=== PATIENT | female | born 1985 | race Caucasian/White ===

== ENCOUNTER 2017-08-07 11:57 | Emergency (ER) | payer BC, OTHER ==
[~2017-08-07] VITALS: Ht 161.3 cm; Wt 65.7 kg
[2017-08-07 12:00] VITALS: TEMP 36.5; Ht 161.3 cm; Wt 65.7 kg
[2017-08-07] MEDS ORDERED: ONDANSETRON INJ 2 MG/ML 2 ML VIAL IV STA (12:08)
[2017-08-07] MEDS ORDERED: SODIUM CHLORIDE 0.9% 1000ML 1,000 ML IV STA (12:08)
[2017-08-07] MEDS ORDERED: MoRPHine SULFATE 4 MG/ML 1 ML CARP\\VIAL IV STA (12:08)
[2017-08-07 12:40] LABS: BASO % 0.5 %; BASO ABS # 0.04 K/uL (0-0.2); EOS % 1.2 %; HEMOGLOBIN 13.4 g/dL (12.0-16.0); IG# 0.02 K/uL (0.00-0.02); LYMPH % 20.9 %; LYMPH ABS # 1.73 K/uL (1.2-3.4); MEAN CELL VOLUME 85.6 fL (80-100); MEAN CORPUSCULAR HEMOGLOBIN 30.2 pg (25-34); MEAN CORPUSCULAR HGB CONC 35.3 g/dl (32-36); MEAN PLATELET VOLUME 9.7 fL (7.4-10.4); MONO % 6.4 %; MONO ABS # 0.53 K/uL (0.11-0.59); NEUT % 70.8 %; NEUT ABS # 5.87 K/uL (1.4-6.5); PLATELET COUNT 253 K/uL (130-400); RED CELL DISTRIBUTION WIDTH SD 37.6 fL (36.4-46.3); WHITE BLOOD COUNT 8.29 K/uL (4.8-10.8)
--- NOTE | 2017-08-07 12:55 | DIAGNOSTIC IMAGING REPORT ---
CT SCAN OF THE ABDOMEN AND PELVIS WITHOUT IV CONTRAST CLINICAL HISTORY: Left flank pain. COMPARISON STUDY: No priors. TECHNIQUE: CT scan of the abdomen and pelvis is performed from the lung bases to the proximal femora. Images are reviewed in the axial, sagittal, and coronal planes. IV contrast was not administered for this examination. A dose lowering technique was utilized adhering to the principles of ALARA. CT DOSE: 443.82 mGy.cm FINDINGS: Lung bases: The heart is normal in size and without pericardial effusion. The lung bases are clear. Liver: The unenhanced liver is normal in size, contour, and attenuation. There is no intrahepatic biliary ductal dilatation. Gallbladder: Numerous gallstones are identified. There is no CT evidence of acute cholecystitis. Spleen: Normal in size and attenuation. Pancreas: Unremarkable. Adrenal glands: Unremarkable. Kidneys: The unenhanced kidneys are normal in size. There is a 7 mm obstructing calculus protruding from the left vesicoureteral junction seen on image #380. This causes moderate left hydroureteronephrosis. There are at least 2 additional punctate nonobstructing calculi identified in the left kidney. A single punctate nonobstructing calculus is seen in the right kidney. There is no right-sided hydronephrosis. There is no evidence of contour deforming renal mass lesion. Abdominal vasculature: The abdominal aorta is normal in course and caliber. Bowel: The small bowel and colon are normal in course and caliber. The appendix is well-visualized and normal. Peritoneum: There is no intraperitoneal free air or abdominal ascites. There is a small fat-containing umbilical hernia. Lymphadenopathy: None. Pelvic viscera: The bladder, uterus, and adnexa are normal as visualized noting bilateral ovarian follicles. Skeletal structures: No lytic or blastic lesions are seen. IMPRESSION: 1. There is a 7 mm obstructing calculus protruding from the left vesicoureteral junction. This causes moderate left hydroureteronephrosis. 2. Additional punctate nonobstructing calculi are seen in both kidneys. 3. Cholelithiasis. Electronically signed by: Tanner Harris M.D. 08/07/2017 12:54 PM Dictated Date/Time: 08/07/2017 12:48 PM
[2017-08-07 12:59] LABS: ALT/SGPT 18 U/L (12-78); AST/SGOT 15 U/L (15-37); BLOOD UREA NITROGEN 16 mg/dl (7-18); CALCIUM 8.9 mg/dl (8.5-10.1); CARBON DIOXIDE 24 mmol/L (21-32); CREATININE 0.94 mg/dl (0.60-1.20); GLUCOSE 90 mg/dl (70-99); LIPASE 98 U/L (73-393); POTASSIUM 3.6 mmol/L (3.5-5.1); SODIUM 139 mmol/L (136-145)
[2017-08-07 13:01] LABS: ALKALINE PHOSPHATASE 71 U/L (45-117); TOTAL PROTEIN 7.4 gm/dl (6.4-8.2)
[2017-08-07] MEDS ORDERED: TAMSULOSIN HCL 0.4 MG CAP PO ONE (13:15)
[2017-08-07] MEDS ORDERED: OXYC1TAB3 PO (14:41)
[2017-08-07] MEDS ORDERED: TAMS0.4C38 PO (14:41)
[2017-08-07] MEDS ORDERED: OXYCODONE IR HOME PACK PO ONE (14:45)
[2017-08-07 15:01] VITALS: BP 118/60; PULSE 67; O2SAT 98
[2017-08-07] MEDS ORDERED: SULF800T23 PO (16:02)
--- NOTE | 2017-08-07 16:05 | EMERGENCY ROOM VISIT NOTE ---
History Report prepared by Claudia: Josie Maldonado Under the Supervision of: Dr. Raheel Kennedy M.D. First contact with patient: 12:03 Chief Complaint: FLANK PAIN Stated Complaint: LEFT SIDE PAIN History of Present Illness The patient is a 32 year old female who presents to the Emergency Room with complaints of persistent left lower back pain starting 2 hours ago. The pain wraps around to her left lower abdomen. She describes the pain as sharp and intense. The pain worsens with movement. She is vomiting. She denies any fever, burning with urination, urinary frequency, hematuria, or diarrhea. She denies any chance of as she has had a tubal ligation. She is sexually active. Her last menstrual period was 2 weeks ago. She denies any history of kidney stones in herself or her family. Source of History: patient Onset: 2 hours ago Position: back (left lower) Quality: sharp Timing: other (persistent) Modifying Factors (Worsening): movement Associated Symptoms: + vomiting, + abdominal pain, No fevers, No diarrhea, No urinary symptoms Review of Systems See HPI for pertinent positives & negatives. A total of 10 systems reviewed and were otherwise negative. Past Medical & Surgical Medical Problems: (1) Anxiety (2) Bronchitis (3) Chest pain (4) Conjunctivitis (5) History Of Tobacco Use Family History Cancer Social History Smoking Status: Never Smoker Alcohol Use: occasionally Occupation Status: employed Current/Historical Medications Scheduled Sulfa/Trimethoprim (Bactrim Ds 800MG/160MG), 1 TAB PO BID Tamsulosin Hcl (Flomax), 0.4 MG PO DAILY Scheduled PRN Oxycodone Ir (Roxicodone Ir), 5 MG PO Q4H PRN for Pain Allergies Coded Allergies: No Known Allergies (Verified , 12/04/14) Physical Exam Vital Signs Date Time Temp Pulse Resp B/P (MAP) Pulse Ox O2 Delivery O2 Flow Rate FiO2 08/07/17 15:01 67 18 118/60 98 08/07/17 14:00 70 18 98 Room Air 08/07/17 12:00 36.5 77 18 129/90 98 Room Air Physical Exam Constitutional: Vital signs reviewed. The patient is in obvious discomfort. Eyes: Pupils are equal round reactive to light. Conjunctiva are noninjected. ENT: Pharynx is clear without erythema or exudate. Mucous membranes are moist. Neck supple without meningeal signs. Respiratory: Clear to auscultation bilaterally. Breath sounds are equal bilaterally. Cardiovascular: Regular rate and rhythm. No rubs or gallops. GI: Soft, nondistended. LLQ tenderness. Bowel sounds are present. Musculoskeletal: No peripheral edema. Left CVA tenderness. Integumentary: No cyanosis. Neurological: The patient is awake and alert. No focal deficits. Psychiatric: Normal affect. Medical Decision & Procedures ER Provider Diagnostic Interpretation: Radiology results as stated below per my review and the radiologist's interpretation: CT SCAN OF THE ABDOMEN AND PELVIS WITHOUT IV CONTRAST CLINICAL HISTORY: Left flank pain. COMPARISON STUDY: No priors. TECHNIQUE: CT scan of the abdomen and pelvis is performed from the lung bases to the proximal femora. Images are reviewed in the axial, sagittal, and coronal planes. IV contrast was not administered for this examination. A dose lowering technique was utilized adhering to the principles of ALARA. CT DOSE: 443.82 mGy.cm FINDINGS: Lung bases: The heart is normal in size and without pericardial effusion. The lung bases are clear. Liver: The unenhanced liver is normal in size, contour, and attenuation. There is no intrahepatic biliary ductal dilatation. Gallbladder: Numerous gallstones are identified. There is no CT evidence of acute cholecystitis. Spleen: Normal in size and attenuation. Pancreas: Unremarkable. Adrenal glands: Unremarkable. Kidneys: The unenhanced kidneys are normal in size. There is a 7 mm obstructing calculus protruding from the left vesicoureteral junction seen on image #380. This causes moderate left hydroureteronephrosis. There are at least 2 additional punctate nonobstructing calculi identified in the left kidney. A single punctate nonobstructing calculus is seen in the right kidney. There is no right-sided hydronephrosis. There is no evidence of contour deforming renal mass lesion. Abdominal vasculature: The abdominal aorta is normal in course and caliber. Bowel: The small bowel and colon are normal in course and caliber. The appendix is well-visualized and normal. Peritoneum: There is no intraperitoneal free air or abdominal ascites. There is a small fat-containing umbilical hernia. Lymphadenopathy: None. Pelvic viscera: The bladder, uterus, and adnexa are normal as visualized noting bilateral ovarian follicles. Skeletal structures: No lytic or blastic lesions are seen. IMPRESSION: 1. There is a 7 mm obstructing calculus protruding from the left vesicoureteral junction. This causes moderate left hydroureteronephrosis. 2. Additional punctate nonobstructing calculi are seen in both kidneys. 3. Cholelithiasis. Electronically signed by: Tanner Harris M.D. 08/07/2017 12:54 PM Dictated Date/Time: 08/07/2017 12:48 PM Laboratory Results 08/07/17 12:30 Red Blood Count 4.44, Mean Corpuscular Volume 85.6, Mean Corpuscular Hemoglobin 30.2, Mean Corpuscular Hemoglobin Concent 35.3, Mean Platelet Volume 9.7, Neutrophils (%) (Auto) 70.8, Lymphocytes (%) (Auto) 20.9, Monocytes (%) (Auto) 6.4, Eosinophils (%) (Auto) 1.2, Basophils (%) (Auto) 0.5, Neutrophils # (Auto) 5.87, Lymphocytes # (Auto) 1.73, Monocytes # (Auto) 0.53, Eosinophils # (Auto) 0.10, Basophils # (Auto) 0.04 08/07/17 12:30 Test 08/07/17 12:30 08/07/17 13:51 White Blood Count 8.29 K/uL (4.8-10.8) Red Blood Count 4.44 M/uL (4.2-5.4) Hemoglobin 13.4 g/dL (12.0-16.0) Hematocrit 38.0 % (37-47) Mean Corpuscular Volume 85.6 fL (80-100) Mean Corpuscular Hemoglobin 30.2 pg (25-34) Mean Corpuscular Hemoglobin Concent 35.3 g/dl (32-36) Platelet Count 253 K/uL (130-400) Mean Platelet Volume 9.7 fL (7.4-10.4) Neutrophils (%) (Auto) 70.8 % Lymphocytes (%) (Auto) 20.9 % Monocytes (%) (Auto) 6.4 % Eosinophils (%) (Auto) 1.2 % Basophils (%) (Auto) 0.5 % Neutrophils # (Auto) 5.87 K/uL (1.4-6.5) Lymphocytes # (Auto) 1.73 K/uL (1.2-3.4) Monocytes # (Auto) 0.53 K/uL (0.11-0.59) Eosinophils # (Auto) 0.10 K/uL (0-0.5) Basophils # (Auto) 0.04 K/uL (0-0.2) RDW Standard Deviation 37.6 fL (36.4-46.3) RDW Coefficient of Variation 12.0 % (11.5-14.5) Immature Granulocyte % (Auto) 0.2 % Immature Granulocyte # (Auto) 0.02 K/uL (0.00-0.02) Anion Gap 9.0 mmol/L (3-11) Est Creatinine Clear Calc Drug Dose 78.5 ml/min Estimated GFR () 92.4 Estimated GFR (Non- 79.7 BUN/Creatinine Ratio 17.2 (10-20) Calcium Level 8.9 mg/dl (8.5-10.1) Total Bilirubin 0.4 mg/dl (0.2-1) Direct Bilirubin < 0.1 mg/dl (0-0.2) Aspartate Amino Transf (AST/SGOT) 15 U/L (15-37) Alanine Aminotransferase (ALT/SGPT) 18 U/L (12-78) Alkaline Phosphatase 71 U/L (45-117) Total Protein 7.4 gm/dl (6.4-8.2) Albumin 4.0 gm/dl (3.4-5.0) Lipase 98 U/L (73-393) Urine Color YELLOW Urine Appearance CLEAR (CLEAR) Urine pH 6.0 (4.5-7.5) Urine Specific [place] 1.014 (1.000-1.030) Urine Protein NEG (NEG) Urine Glucose (UA) NEG (NEG) Urine Ketones NEG (NEG) Urine Occult Blood 3+ (NEG) Urine Nitrite NEG (NEG) Urine Bilirubin NEG (NEG) Urine Urobilinogen NEG (NEG) Urine Leukocyte Esterase SMALL (NEG) Urine WBC (Auto) 5-10 /hpf (0-5) Urine RBC (Auto) >30 /hpf (0-4) Urine Hyaline Casts (Auto) 1-5 /lpf (0-5) Urine Epithelial Cells (Auto) >30 /lpf (0-5) Urine Bacteria (Auto) NEG (NEG) Urine Test NEG (NEG) Laboratory results as reviewed by me. Medications Administered Medications (Trade) Dose Ordered Sig/Hodan Route Start Time Stop Time Status Last Admin Dose Admin Morphine Sulfate (MoRPHine SULFATE INJ) 4 mg ONE STAT IV 08/07/17 12:08 08/07/17 12:09 DC 08/07/17 12:32 4 MG Ondansetron HCl (Zofran Inj) 4 mg NOW STAT IV 08/07/17 12:08 08/07/17 12:09 DC 08/07/17 12:32 4 MG Sodium Chloride 1,000 ml @ 999 mls/hr Q1H1M STAT IV 08/07/17 12:08 08/07/17 13:08 DC 08/07/17 12:33 999 MLS/HR Tamsulosin HCl (Flomax Cap) 0.4 mg NOW ONCE PO 08/07/17 13:15 08/07/17 13:16 DC 08/07/17 13:29 0.4 MG Oxycodone HCl (Roxicodone Immediate Rel 5MG Home Pack) 1 homepack UD ONCE PO 08/07/17 14:45 08/07/17 14:46 DC 08/07/17 15:01 1 HOMEPACK ED Course 1205: The patient was evaluated in room C10. A complete history and physical exam was performed. 1208: NSS 1000 ml @ 999 mls/hr IV, Zofran Inj 4 mg IV, Morphine Sulfate 4 mg IV. 1251: I reevaluated the patient. Her pain is down to a 3/10 and she is feeling better. I updated her on the results. 1315: Flomax Cap 0.4 mg PO. 1433: Upon reevaluation, the patient appeared to have improvement of her symptoms. I discussed rosy's findings with her and her family. They verbalized agreement of the treatment plan. She was discharged home. 1445: Oxycodone HCl 1 homepack PO. Medical Decision This is a 32-year-old female presents with left flank pain. Differential diagnosis includes kidney stone, obstructive uropathy, UTI, pyelonephritis, strain, diverticulitis. I did perform a limited focused review of portions of the patient's old chart on the electronic medical record. The patient has had no recent pertinent visits to this hospital. I did evaluate the patient as noted above. Patient is presenting with left flank pain. Her symptoms seem consistent with renal colic. IV access was established. I did order and personally review the patient's urinalysis as described above. Results are equivocal. She denies having any dysuria. A urine culture was sent. I did order and review the patient's blood work as noted in the electronic medical record. Labs are unremarkable. I did order a CT of the abdomen and pelvis. I did review the images myself as well as the radiology report as described above. She does have a 7 mm left UVJ stone with hydronephrosis. She also has some punctate stones intrarenally. I did discuss the test results with the patient. She was treated with normal saline and morphine and Zofran IV. She states she feels much better and is ready to go home. I did discuss the test results with her and her family. I did recommend antibiotic treatment in case this was an early infection. The patient was discharged with a prescription for OxyIR, Flomax and Bactrim. She was advised to follow-up with urology for further care. [place] Drug Monitoring Program Search Results: patient reviewed within database, no issues identified Medication Reconcilliation Current Medication List: was personally reviewed by me Blood Pressure Screening Patient's blood pressure: Elevated blood pressure Blood pressure disposition: Elevated BP felt to be situational Impression Primary Impression: Renal colic Additional Impression: Obstructive uropathy Scribe Attestation The scribe's documentation has been prepared under my direct and personally reviewed by me in its entirety. I confirm that the note above accurately reflects all work, treatment, procedures, and medical decision making performed by me. Departure Information Dispostion Home / Self-Care Prescriptions Sulfa/Trimethoprim (Bactrim Ds 800MG/160MG) Tab 1 TAB PO BID, #14 TAB Prov: Raheel Kennedy M.D. 08/07/17 Tamsulosin Hcl (FLOMAX) 0.4 Mg Cap 0.4 MG PO DAILY, #5 CAP Prov: Raheel Kennedy M.D. 08/07/17 Oxycodone Ir (Roxicodone Ir) 5 Mg Tab 5 MG PO Q4H Y for Pain, #20 TAB Prov: Raheel Kennedy M.D. 08/07/17 Referrals No Doctor, Assigned (PCP) Piotr Leroy MD Forms HOME CARE DOCUMENTATION FORM, IMPORTANT VISIT INFORMATION Patient Instructions Kidney Stones Expectant Therapy, [facility] Additional Instructions You have been examined and treated today on an emergency basis only. This is not a substitute for, or an effort to provide, complete comprehensive medical care. It is impossible to recognize and treat all injuries or illnesses in a single emergency department visit. It is therefore important that you follow up closely with Dr. Leroy of urology. Call as soon as possible for an appointment. Return for worsening symptoms or if you develop fever, vomiting, or any other concerning symptoms. Start Flomax tomorrow. Stop taking it if you pass your kidney stone or if it makes you lightheaded. Problem Qualifiers
== END 2017-08-07 15:03 | disposition home or self-care (01) ==
LOC: C.EDB 11:58 → C.EDC 15:03
DX: N23 Unspecified renal colic (principal); N13.9 Obstructive and reflux uropathy, unspecified; F41.9 Anxiety disorder, unspecified; Z80.9 Family history of malignant neoplasm, unspecified

== ENCOUNTER 2019-03-25 23:21 | Observation (INO) ==
[2019-03-25] MEDS ORDERED: MoRPHine SULFATE 4 MG/ML 1 ML CARP\\VIAL IV STA (23:40)
[2019-03-25] MEDS ORDERED: SODIUM CHLORIDE 0.9% 1000ML 1,000 ML IV ONE (23:40)
[2019-03-25] MEDS ORDERED: ONDANSETRON INJ 2 MG/ML 2 ML VIAL IV STA (23:40)
[2019-03-26] LABS: Appearance Urine Slightly Cloudy (Clear); Bilirubin Urine Negative (Negative); Blood Urine Negative (Negative); Color Urine Yellow; Glucose Urine UA Negative (Negative); Ketones Urine Negative (Negative); Leukocyte Esterase Urine 2+ (Negative); Nitrite Urine Negative (Negative); Protein Urine Negative (Negative); Urobilinogen Urine Negative (Negative); pH Urine 6.5 (4.5-7.5)
[2019-03-26 00:02] LABS: Basophils # (auto) 0.02 K/uL (0-0.2); Basophils % (auto) 0.3 %; Eosinophils % (auto) 1.4 %; Hematocrit (blood only) 40.1 % (37-47); Hemoglobin 13.9 g/dL (12.0-16.0); Immature Granulocytes # (auto) 0.02 K/uL (0.00-0.02); Immature Granulocytes % (auto) 0.3 %; Lymphocytes # (auto) 2.03 K/uL (1.2-3.4); Lymphocytes % (auto) 27.5 %; Mean Corpuscular Hemoglobin 31.4 pg (25-34); Mean Corpuscular Hgb Conc 34.7 g/dL (32-36); Mean Corpuscular Volume 90.5 fL (80-100); Mean Platelet Volume 9.6 fL (7.4-10.4); Monocytes # (auto) 0.59 K/uL (0.11-0.59); Neutrophils # (auto) 4.63 K/uL (1.4-6.5); Neutrophils % (auto) 62.5 %; Platelet Count 260 K/uL (130-400); RDW Coefficient of Variation 12.4 % (11.5-14.5); RDW Standard Deviation 41.3 fL (36.4-46.3); Red Blood Count 4.43 M/uL (4.2-5.4); White Blood Count 7.39 K/uL (4.8-10.8)
[2019-03-26 00:08] LABS: Epithelial Cell Urine >30 /lpf (0-5)
[2019-03-26 00:10] LABS: Bacteria Urine Negative (Negative); RBC Urine 0-4 /hpf (0-4)
[2019-03-26 00:19] LABS: Albumin Level 3.9 gm/dl (3.4-5.0); BUN Creatinine Ratio 16.1 (10-20); Calcium 9.3 mg/dl (8.5-10.1); Creatinine Clr Calc Pharmacy 87.3 ml/min; Est GFR (Non-African American) 84.6; Potassium 3.8 mmol/L (3.5-5.1)
[2019-03-26 00:22] LABS: Bilirubin,Total 0.3 mg/dl (0.2-1); Globulin 3.8 gm/dl (2.5-4.0); Total Protein 7.7 gm/dl (6.4-8.2)
[2019-03-26] MEDS ORDERED: ONDANSETRON INJ 2 MG/ML 2 ML VIAL IV STA (01:59)
[2019-03-26] MEDS ORDERED: MoRPHine SULFATE 2 MG/ML CARP IV STA (01:59)
[2019-03-26] MEDS ORDERED: SODIUM CHLORIDE 0.9% 500 ML IV SCH (02:00)
--- NOTE | 2019-03-26 03:16 | History & Physical Report ---
Date of Service March 26, 2019 Assessment & Plan (1) RUQ abdominal pain: 33-year-old female otherwise healthy presents with right upper quadrant abdominal pain that worsened tonight after dinner. Concern for cholecystitis Right upper quadrant abdominal pain: Concern for cholecystitis versus choledocholithiasis Afebrile, no WBC elevation Ultrasound gallbladder: Cholelithiasis, borderline gallbladder wall thickness, dilated common bile duct 10 mm positive Ruvalcaba sign MRCP ordered to rule out choledocholithiasis LFT and lipase normal Received normal saline, Zofran and morphine in the ED Toradol and morphine as needed for pain Zofran as needed for nausea/vomiting N.p.o. on IV fluids Surgery consulted Urinary frequency UA greater than 30 epi, 2+ leuk esterase and 10-30 WBC Urine culture pending Consider antibiotic if culture positive FEN/GI: N.p.o. on IV fluids LR 125 cc/h DVT prophylaxis: SCDs only, encourage ambulation Code: Full Disposition: MedSur History of Present Illness Chief Complaint: Right upper quadrant abdominal pain Primary Care Provider: Ke Galicia MD 33-year-old female otherwise healthy presents with right upper quadrant abdominal pain that worsened tonight after dinner. Reports discomfort since January and her right upper quadrant. Tonight had some [place] food, ice cream, and some pizza after which her pain got worse. Associate with nausea and vomiting. Also having increased urinary frequency but denies any dysuria or hematuria. Denies any fever, chills, headache, lightheadedness, chest pain, shortness of breath, diarrhea, constipation, hematochezia, melena. Past medical history: None Allergies: None Medications: None Social history: Drinks alcohol socially, smoked only for 6 months socially, denies recreational drug use Family history: Patient adopted unknown Allergies Allergy/AdvReac Type Severity Reaction Status Date / Time No Known Allergies Allergy Unknown Verified 03/26/19 00:21 Home Medications Home Medications Medication Instructions Recorded Confirmed Type No Known Home Medications 03/26/19 03/26/19 History Past Med/Surg History Medical History Anxiety (Chronic) Bronchitis (Resolved) Conjunctivitis (Resolved) Costochondritis (Acute) Obstructive uropathy (Acute) Renal colic (Acute) Surgical History H/O tubal ligation Social History Feels Safe at Home: Yes Smoking Status: Never smoker Review of Systems Review of Systems: As per HPI Physical Exam Physical Exam: General: In mild distress HEENT: dry oral mucosa Neuro: A&O x 4 Pulm: CTAB equal breath sounds bilaterally CV: RRR, no m/r/g, cap refill 3 secs Abdomen:+BS, RUQ and epigastric TTP, positive Ruvalcaba's sign, non-distended, no rebound tendernes LE: no LE edema, no calf TTP Results & Data Vital Signs (Past 12 Hours) Vital Signs Temp Pulse Pulse Resp BP BP Pulse Ox 03/26/19 01:57 69 16 121/51 L 95 03/26/19 01:46 71 14 121/51 L 96 03/26/19 00:41 71 16 135/91 100 03/26/19 00:18 81 16 144/99 H 100 03/25/19 23:25 36.7 C 90 20 150/94 H 98 Laboratory Results Abnormal lab results 03/25/19 03/25/19 Range/Units 23:48 23:50 Chloride 108 H (98-107) mmol/L AST 11 L (15-37) U/L Ur Leukocyte Esterase 2+ H (Negative) Urine WBC 10-30 H (0-5) /hpf Ur Epithelial Cells >30 H (0-5) /lpf Medications Administered Current Inpatient Medications Sodium Chloride (Nss) 500 mls @ 125 mls/hr IV .Q4H MING Stop: 04/25/19 01:59 Last Infusion: 03/26/19 03:04 Dose: 0 mls/hr Documented by: Code Status & VTE Plan Code Status Full VTE Prophylaxis Plan VTE Prophylaxis will be ordered: Yes Supervising Physician Co-Signing Physician Notes Attending addendum: I have physically seen this patient, have supervised the medical residents activities, and agree with the H&P unless as otherwise noted. Assessment and Plan: Right upper quadrant abdominal pain/CBD dilatation- Abnormal gallbladder ultrasound with gallbladder wall thickening and dilated CBD of 10 mm. NPO Famotidine 20 mg IV every 12 hours. IV fluids. NSS at 125 mL's per hour Zofran 4 mg IV every 6 hours PRN. Toradol IV as needed moderate pain Morphine sulfate IV as needed severe pain. Order an MRCP, and pending results, consult to gastroenterology and/or general surgery. Urinary frequency- Urine culture and sensitivity pending. Empiric treatment with ceftriaxone IV to cover UTI and urinary issues. Remainder of orders and notations as noted Resident Activity Tracking Resident Involvement: Resident Care Provided Care Provided: Adult Hospital Medicine
--- NOTE | 2019-03-26 03:54 | Billing Data ---
Coding Level of Care Code 74726 OBS Care - Level 3
[2019-03-26] MEDS ORDERED: ONDANSETRON INJ 2 MG/ML 2 ML VIAL IV PRN ×2 (04:04→15:30)
[2019-03-26] MEDS ORDERED: ALUMINUM/MAGNESIUM SUSP 30 ML UDC PO PRN (04:04)
[2019-03-26] MEDS ORDERED: KETOROLAC TROMETHAMINE 15 MG/ML VIAL IM PRN (04:04)
[2019-03-26] MEDS ORDERED: ACETAMINOPHEN 325 MG TAB PO PRN (04:04)
[2019-03-26] MEDS: cefTRIAXone SODIUM 1,000 MG in DEXTROSE 5% 50 ML IV SCH (04:24)
--- NOTE | 2019-03-26 04:44 | Emergency Department Note ---
Entered by Belen Drew acting as a scribe for Kavitha Parr DO History of Present Illness General Chief complaint: Abdominal Pain Stated complaint: 10 WKS PREG, BACK AND ABD PAIN Time Seen by Provider: 03/25/19 23:28 Source: patient History of Present Illness Onset (ago): hour(s) 1 Location: abdomen (right upper ) Radiation: back (right lower) Severity: similar to prior episodes Pain Consistency: + other (persistent ) Maximum Pain Intensity: 7 Associated symptoms: + nausea/vomiting Treatments prior to arrival: none The patient is a 33 year old female who presents to the Emergency Room with complaints of persistent right upper abdominal pain that began 1 hour prior to arrival. The patient states that her pain radiates to her right lower back. The patient reports feeling nauseous, and her states that she vomited on the way to the ED. The patient states that she has a history of kidney stones and states that this feels similar to her prior episodes. She states that she just found out she was 2 days ago by taking a home test. The patient states that she previously had a tubal ligation. She states that she still has her gallbladder. The patient states that she had [place] food for dinner several hours prior to her pain beginning. Home Medications Home Medications Medication Instructions Recorded Confirmed Type No Known Home Medications 03/26/19 03/26/19 History Allergies Allergy/AdvReac Type Severity Reaction Status Date / Time No Known Allergies Allergy Unknown Verified 03/26/19 00:21 Past Med/Surg History Medical History Anxiety (Chronic) Bronchitis (Resolved) Conjunctivitis (Resolved) Costochondritis (Acute) Obstructive uropathy (Acute) Renal colic (Acute) Surgical History H/O tubal ligation Social History Preferred Language: Senegalese Communication Ability: Effective Salt Manager Required: No Beliefs That Will Affect Care: None Current Living Situation: Significant Other Feels Safe at Home: Yes Smoking Status: Never smoker Hx Alcohol Use: Yes Alcohol type: wine Hx Substance Use: No Review of Systems See HPI for pertinent positives & negatives. and A total of 10 systems reviewed and were otherwise negative Physical Exam Vital Signs Vital Signs - 24 hr 03/25/19 23:25 03/26/19 00:18 03/26/19 00:41 Temperature 36.7 C Temperature Source Oral Pulse Rate 90 Pulse Rate [Right Finger] 81 71 Pulse Rhythm [Right Finger] Regular Regular Pulse Strength [Right Finger] Normal Normal Respiratory Rate 20 16 16 Respiratory Effort / Characteristics Non-Labored Spontaneous Non-Labored Non-Labored Respiratory Depth Normal Normal Normal Blood Pressure 150/94 H Blood Pressure [Right Arm] 144/99 H 135/91 Blood Pressure Mean 112 Blood Pressure Mean [Right Arm] 114 105 Blood Pressure Position [Right Arm] Sitting Sitting Pulse Oximetry 98 100 100 Oxygen Delivery Method Room Air Room Air Room Air Sepsis Recent Fever Within 48 Hours No Sepsis New/Unexplained Change in Mental Status No Sepsis Action Taken by Nursing No Action Required 03/26/19 01:46 03/26/19 01:47 03/26/19 01:57 Temperature Temperature Source Pulse Rate Pulse Rate [Right Finger] 71 69 Pulse Rhythm [Right Finger] Regular Pulse Strength [Right Finger] Normal Respiratory Rate 14 16 Respiratory Effort / Characteristics Non-Labored Respiratory Depth Normal Blood Pressure Blood Pressure [Right Arm] 121/51 L 121/51 L Blood Pressure Mean Blood Pressure Mean [Right Arm] 74 74 Blood Pressure Position [Right Arm] Lying Pulse Oximetry 96 95 Oxygen Delivery Method Room Air Room Air Room Air Sepsis Recent Fever Within 48 Hours Sepsis New/Unexplained Change in Mental Status Sepsis Action Taken by Nursing General: Appears uncomfortable. HEENT: Head - normocephalic and atraumatic Pupils are equal, round, and reactive to light. Extraocular eye muscles are intact, and sclera are anicteric. Nose - moist nasal mucosa without discharge. Mouth - moist buccal mucosa. Oropharynx is nonerythematous and there is no tonsillar exudate or edema noted. Neck: Supple; no JVD, nuchal rigidity, cervical lymphadenopathy. Heart: Regular rate and rhythm. There is a normal S1 and S2 with no murmurs, clicks, or gallops appreciated. Lungs: Clear to auscultation bilaterally with no wheezes, rales, or rhonchi. Abdomen: . Pain in right upper quadrant of abdomen. Soft, nondistended, with good bowel sounds. There are no palpable pulsatile masses or hepatosplenome anayeli. There is no guarding, rigidity, or rebound noted. Back: Right flank pain. Extremities: No evidence of cyanosis, clubbing, or edema. There are easily palpable peripheral pulses. Skin: warm and dry with good turgor and no rashes. Course Course 2333: Past medical records reviewed. The patient was evaluated in room A3. A complete history and physical exam was performed. An IV lock was initiated and labs were drawn as above. 2341: Ordered Morphine Sulfate 4 mg IV and Zofran 4 mg IV. 0017: Upon reevaluation, the patient's pain is better. She states that she is still nauseous. The patient states that she passed clots while trying to go to the bathroom but states that she does not know where her clots came from. 0040: Ordered Sodium Chloride 1000 mls @ 999 mls/hr IV. 0101: I checked on and updated the patient. 0154: Upon reevaluation, the patient is resting comfortably and feeling better. I discussed findings and results with her. 0159: Ordered Sodium Chloride 500 mls @ 125 mls/hr IV. 0200: Ordered Morphine Sulfate 2 mg IV and Zofran 2 mg IV. 0444: I discussed the case with Dr. Rosenberg[facility] Hospitalist who accepts the patient for further evaluation. Administered Medications Lactated Ringer's (Lr) 1,000 mls @ 125 mls/hr IV .Q8H MING Stop: 04/25/19 04:03 Last Admin: 03/26/19 04:58 Dose: 125 mls/hr Documented by: [id number] Ceftriaxone Sodium 1,000 mg/ (Dextrose) 50 mls @ 100 mls/hr IV Q24H MING; Protocol Stop: 03/31/19 04:59 Last Infusion: 03/26/19 04:58 Dose: 0 mls/hr Documented by: [id number] Admin: 03/26/19 04:24 Dose: 100 mls/hr Documented by: [id number] Discontinued Medications Sodium Chloride (Nss 1000ml) 1,000 mls @ 999 mls/hr IV .Q1H1M ONE Stop: 03/26/19 00:40 Last Infusion: 03/26/19 01:56 Dose: 0 mls/hr Documented by: [id number] Admin: 03/26/19 00:13 Dose: 999 mls/hr Documented by: [id number] Sodium Chloride (Nss) 500 mls @ 125 mls/hr IV .Q4H MING Stop: 04/25/19 01:59 Last Infusion: 03/26/19 04:19 Dose: 0 mls/hr Documented by: [id number] Infusion: 03/26/19 03:04 Dose: 0 mls/hr Documented by: [id number] Admin: 03/26/19 02:18 Dose: 125 mls/hr Documented by: [id number] Morphine Sulfate (Morphine Sulfate) 4 mg IV NOW STA Stop: 03/25/19 23:41 Last Admin: 03/26/19 00:06 Dose: 4 mg Documented by: [id number] Morphine Sulfate (Morphine Sulfate) 2 mg IV NOW STA Stop: 03/26/19 02:00 Last Admin: 03/26/19 02:18 Dose: 2 mg Documented by: [id number] Ondansetron HCl (Zofran) 4 mg IV NOW STA Stop: 03/25/19 23:41 Last Admin: 03/26/19 00:06 Dose: 4 mg Documented by: [id number] Ondansetron HCl (Zofran) 2 mg IV NOW STA Stop: 03/26/19 02:00 Last Admin: 03/26/19 02:18 Dose: 2 mg Documented by: [id number] Medical Decision Making Differential Diagnosis Differential diagnoses include cholecystitis, ureteral colic, pyelonephritis, ectopic , herpes zoster, and others were considered. Medical Records Attestation: I reviewed the patient's medical records. Home Medications Current Medication List: was personally reviewed by me Laboratory Data Attestation: I reviewed the patient's lab results. Result diagrams: 03/25/19 23:48 03/25/19 23:48 Lab Results 03/25/19 03/25/19 03/25/19 Range/Units 23:48 23:48 23:50 WBC 7.39 (4.8-10.8) K/uL RBC 4.43 (4.2-5.4) M/uL Hgb 13.9 (12.0-16.0) g/dL Hct 40.1 (37-47) % MCV 90.5 (80-100) fL MCH 31.4 (25-34) pg MCHC 34.7 (32-36) g/dL RDW Std Deviation 41.3 (36.4-46.3) fL RDW Coeff of Amirah 12.4 (11.5-14.5) % Plt Count 260 (130-400) K/uL MPV 9.6 (7.4-10.4) fL Immature Gran % (Auto) 0.3 % Neut % (Auto) 62.5 % Lymph % (Auto) 27.5 % [place] % (Auto) 8.0 % Eos % (Auto) 1.4 % Baso % (Auto) 0.3 % Immature Gran # (Auto) 0.02 (0.00-0.02) K/uL Neut # (Auto) 4.63 (1.4-6.5) K/uL Lymph # (Auto) 2.03 (1.2-3.4) K/uL [place] # (Auto) 0.59 (0.11-0.59) K/uL Eos # (Auto) 0.10 (0-0.5) K/uL Baso # (Auto) 0.02 (0-0.2) K/uL Sodium 140 (136-145) mmol/L Potassium 3.8 (3.5-5.1) mmol/L Chloride 108 H (98-107) mmol/L Carbon Dioxide 28 (21-32) mmol/L Anion Gap 4.0 (3-11) BUN 14 (7-18) mg/dl Creatinine 0.89 (0.6-1.2) mg/dl Est Cr Clr Drug Dosing 87.3 ml/min Est GFR ( Amer) 98.0 Est GFR (Non-Af Amer) 84.6 BUN/Creatinine Ratio 16.1 (10-20) Glucose 89 (70-99) mg/dl Calcium 9.3 (8.5-10.1) mg/dl Total Bilirubin 0.3 (0.2-1) mg/dl AST 11 L (15-37) U/L ALT 15 (12-78) U/L Alkaline Phosphatase 73 (45-117) U/L Total Protein 7.7 (6.4-8.2) gm/dl Albumin 3.9 (3.4-5.0) gm/dl Globulin 3.8 (2.5-4.0) gm/dl Albumin/Globulin Ratio 1.0 (0.9-2) Lipase 95 (73-393) U/L HCG, Quant mIU/ml Urine Color Yellow Urine Appearance Slightly Cloudy (Clear) Urine pH 6.5 (4.5-7.5) Ur Specific [place] 1.020 (1.000-1.030) Urine Protein Negative (Negative) Urine Glucose (UA) Negative (Negative) Urine Ketones Negative (Negative) Urine Blood Negative (Negative) Urine Nitrite Negative (Negative) Urine Bilirubin Negative (Negative) Urine Urobilinogen Negative (Negative) Ur Leukocyte Esterase 2+ H (Negative) Urine RBC 0-4 (0-4) /hpf Urine WBC 10-30 H (0-5) /hpf Ur Epithelial Cells >30 H (0-5) /lpf Urine Bacteria Negative (Negative) 03/26/19 Range/Units 00:07 WBC (4.8-10.8) K/uL RBC (4.2-5.4) M/uL Hgb (12.0-16.0) g/dL Hct (37-47) % MCV (80-100) fL MCH (25-34) pg MCHC (32-36) g/dL RDW Std Deviation (36.4-46.3) fL RDW Coeff of Amirah (11.5-14.5) % Plt Count (130-400) K/uL MPV (7.4-10.4) fL Immature Gran % (Auto) % Neut % (Auto) % Lymph % (Auto) % [place] % (Auto) % Eos % (Auto) % Baso % (Auto) % Immature Gran # (Auto) (0.00-0.02) K/uL Neut # (Auto) (1.4-6.5) K/uL Lymph # (Auto) (1.2-3.4) K/uL [place] # (Auto) (0.11-0.59) K/uL Eos # (Auto) (0-0.5) K/uL Baso # (Auto) (0-0.2) K/uL Sodium (136-145) mmol/L Potassium (3.5-5.1) mmol/L Chloride (98-107) mmol/L Carbon Dioxide (21-32) mmol/L Anion Gap (3-11) BUN (7-18) mg/dl Creatinine (0.6-1.2) mg/dl Est Cr Clr Drug Dosing ml/min Est GFR ( Amer) Est GFR (Non-Af Amer) BUN/Creatinine Ratio (10-20) Glucose (70-99) mg/dl Calcium (8.5-10.1) mg/dl Total Bilirubin (0.2-1) mg/dl AST (15-37) U/L ALT (12-78) U/L Alkaline Phosphatase (45-117) U/L Total Protein (6.4-8.2) gm/dl Albumin (3.4-5.0) gm/dl Globulin (2.5-4.0) gm/dl Albumin/Globulin Ratio (0.9-2) Lipase (73-393) U/L HCG, Quant < 1 mIU/ml Urine Color Urine Appearance (Clear) Urine pH (4.5-7.5) Ur Specific [place] (1.000-1.030) Urine Protein (Negative) Urine Glucose (UA) (Negative) Urine Ketones (Negative) Urine Blood (Negative) Urine Nitrite (Negative) Urine Bilirubin (Negative) Urine Urobilinogen (Negative) Ur Leukocyte Esterase (Negative) Urine RBC (0-4) /hpf Urine WBC (0-5) /hpf Ur Epithelial Cells (0-5) /lpf Urine Bacteria (Negative) Imaging Data Radiologist's Impression: Radiology results as stated below per my review and the radiologist's interpretation: US GALLBLADDER: Cholelithiasis. Borderline gallbladder wall thickness. Dilated common bile duct measuring 10 mm. Positive sonographic Ruvalcaba's sign. Correlate clinically regarding cholecystitis. MRCP maybe considered if there is concern for choledocholithiasis. Radiologist: Milady Bah M.D. Study ready at 01:39 and initial results transmitted at 01:41 Blood Pressure Blood Pressure Findings: Normal blood pressure MDM Narrative The patient is a 33 year old female who presents to the Emergency Room with complaints of persistent right upper abdominal pain that began 1 hour prior to arrival. Originally, the patient thought that she was . However, the quantitative hCG came back less than 1. Patient had symptoms in the right upper quadrant of the abdomen and had a positive Ruvalcaba sign on physical exam. An ultrasound of the right upper quadrant was obtained which showed some gallstones with mildly dilated common bile duct and mildly thickened gallbladder wall. I discussed the case with the [facility] Hospitalist and they will evaluate for further management. Impression & Plan Cholelithiasis, Right upper quadrant abdominal pain Discharge Plan Visit Data *Final* Discharge Date/Time: 03/26/19 03:40 Chief Complaint: Abdominal Pain Stated Complaint: 10 WKS PREG, BACK AND ABD PAIN ED Provider: Kavitha Parr Discharge Problem: Cholelithiasis, Right upper quadrant abdominal pain Patient Disposition: Admitted As Inpatient Discharge Instructions Interventions: ED Discharge Assessment Last Done: 03/26/19 03:40 Discharge Problem: Cholelithiasis Qualifiers: Cholelithiasis location: gallbladder Cholecystitis presence: with cholecystitis Cholecystitis acuity: acute Biliary obstruction: without biliary obstruction Qualified Code(s): K80.00 - Calculus of gallbladder with acute cholecystitis without obstruction The scribe's documentation has been prepared under my direction and personally reviewed by me in its entirety. I confirm that the note above accurately r eflects all work, treatment, procedures, and medical decision making performed by me.
[2019-03-26] MEDS: LACTATED RINGER'S 1,000 ML IV SCH ×2 (04:58→13:04)
--- NOTE | 2019-03-26 06:36 | Magnetic Resonance Report ---
Study: MRCP HISTORY: Upper abdominal pain. COMPARISON: None. FINDINGS: Gallstones are present within the gallbladder lumen. No significant pericholecystic edemato us change. Biliary ductal system shows no significant filling defect. Common bile duct measures 6 mm at maximum. No significant dilatation of the pancreatic duct. Kidneys are considered negative for hydronephrosis. Nonobstructive bowel pattern. IMPRESSION: 1. Gallstones. 2. Normal caliber bile ducts. 3. Otherwise negative study. Electronically signed by: Juan Schmidt M.D. 03/26/2019 6:35 AM
--- NOTE | 2019-03-26 07:03 | Ultrasound Report ---
US gallbladder HISTORY: Pain. Nausea. ruq pain COMPARISON: None. FINDINGS: Multiple gallstones within the gallbladder lumen. No significant pericholecystic edema. Gallbladder w all. Normal at 3 mm. Mild prominence of the common bile duct at 9 mm. Right kidney is negative for hydronephrosis. Liver a nd pancreas are uniform. IMPRESSION: 1. Gallstones. 2. Prominent common bile duct at 9 mm. The above report was generated using voice recognition software. It may contain grammatical, syntax or spelling errors. Electronically signed by: Juan Schmidt M.D. 03/26/2019 7:02 AM
[2019-03-26] MEDS: KETOROLAC TROMETHAMINE 15 MG/ML VIAL IV PRN ×2 (08:04→22:09)
[2019-03-26] MEDS: MoRPHine SULFATE 2 MG/ML CARP IV PRN ×3 (09:34→19:04)
--- NOTE | 2019-03-26 11:05 | Surgery Consultation ---
Date of Consultation March 26, 2019 Assessment & Plan (1) Cholelithiasis: pt is a 33 year-old female who was admitted to hospital for 2 months history RUQ pain, IMP: chronic cholecystitis with cholelithiasis Plan, I recommend to do laparoscopic cholecystectomy, possible open or cholangio gram, D/W benefits, risks and alternatives of the surgery, the risks - infection, bleeding, injury CBD, biliary leak, pt understood, she agrees with the surgery, I answered all questions, (2) Right upper quadrant abdominal pain: (3) RUQ abdominal pain: Supervising Physician Co-Signing Physician Notes Attending addendum: I have physically seen this patient, have supervised the medical residents activities, and agree with the H&P unless as otherwise noted. Assessment and Plan: Right upper quadrant abdominal pain/CBD dilatation- Abnormal gallbladder ultrasound with gallbladder wall thickening and dilated CBD of 10 mm. NPO Famotidine 20 mg IV every 12 hours. IV fluids. NSS at 125 mL's per hour Zofran 4 mg IV every 6 hours PRN. Toradol IV as needed moderate pain Morphine sulfate IV as needed severe pain. Order an MRCP, and pending results, consult to gastroenterology and/or general surgery. Urinary frequency- Urine culture and sensitivity pending. Empiric treatment with ceftriaxone IV to cover UTI and urinary issues. Remainder of orders and notations as noted History of Present Illness Attending Physician: Irma Marks MD Chief Complaint: Right upper quadrant abdominal pain Primary Care Provider: Ke Galicia MD 33-year-old female otherwise healthy presents with right upper quadrant abdominal pain that worsened tonight after dinner. Reports discomfort since January and her right upper quadrant. Tonight had some [place] food, ice cream, and some pizza after which her pain got worse. Associate with nausea and vomiting. Also having increased urinary frequency but denies any dysuria or hematuria. Denies any fever, chills, headache, lightheadedness, chest pain, shortness of breath, diarrhea, constipation, hematochezia, melena. I reviewed pt's H/P with pt, pt is still have RUQ pain, I also reviewed pt's Labs and U/S study and MRCP. Past medical history: None Allergies: None Medications: None Social history: Drinks alcohol socially, smoked only for 6 months socially, denies recreational drug use Allergies Allergy/AdvReac Type Severity Reaction Status Date / Time No Known Allergies Allergy Unknown Verified 03/26/19 00:21 Home Medications Home Medications Medication Instructions Recorded Confirmed Type No Known Home Medications 03/26/19 03/26/19 History Patient History Medical History Anxiety (Chronic) Bronchitis (Resolved) Conjunctivitis (Resolved) Costochondritis (Acute) Obstructive uropathy (Acute) Renal colic (Acute) Surgical History H/O tubal ligation Social History Preferred Language: Luxembourgish Communication Ability: Effective Chart Reader Required: No Beliefs That Will Affect Care: None Current Living Situation: Significant Other Feels Safe at Home: Yes Smoking Status: Never smoker Hx Alcohol Use: Yes Alcohol type: wine Hx Substance Use: No Review of Systems Review of Systems: All systems reviewed & are unremarkable except as noted in HPI & below Physical Exam Constitutional: WD/WN, vitals as above well developed and well nourished ENMT: external ear and nose normal, oropharynx normal Neck: trachea midline, no thyromegaly Respiratory: normal respiratory effort, lungs clear to auscultation normal respiratory effort Cardiovascular: RRR, no murmur, no edema Rate/Rhythm: regular rate and regular rhythm Heart Sounds: normal S1 and normal S2 Gastrointestinal (Abdomen): normal bowel sounds, soft, nontender, no hepatosplenomegaly Percussion/Palpation: + abdomen tender and abdomen soft tenderness at RUQ, no rebound pain, BS + Musculoskeletal: no cyanosis or clubbing, extremities motor strength 5/5 Skin: no rashes, warm and dry Neurologic: patellar DTR's 2+ bilat, sensation intact Psychiatric: Orientation: alert and oriented x 3 Results & Data Vital Signs (Past 12 Hours) Vital Signs Temp Pulse Pulse Pulse Resp BP BP 03/26/19 07:30 36.9 C 65 13 118/80 03/26/19 04:03 37 C 68 16 122/77 03/26/19 03:10 80 19 112/85 03/26/19 01:57 69 16 121/51 L 03/26/19 01:46 71 14 121/51 L 03/26/19 00:41 71 16 135/91 03/26/19 00:18 81 16 144/99 H 03/25/19 23:25 36.7 C 90 20 150/94 H Pulse Ox 03/26/19 07:30 97 03/26/19 04:03 99 03/26/19 03:10 99 03/26/19 01:57 95 03/26/19 01:46 96 03/26/19 00:41 100 03/26/19 00:18 100 03/25/19 23:25 98 Laboratory Results Abnormal lab results 03/25/19 03/25/19 Range/Units 23:48 23:50 Chloride 108 H (98-107) mmol/L AST 11 L (15-37) U/L Ur Leukocyte Esterase 2+ H (Negative) Urine WBC 10-30 H (0-5) /hpf Ur Epithelial Cells >30 H (0-5) /lpf Diagnostic Findings US gallbladder HISTORY: Pain. Nausea. ruq pain COMPARISON: None. FINDINGS: Multiple gallstones within the gallbladder lumen. No significant pericholecystic edema. Gallbladder wall. Normal at 3 mm. Mild prominence of the common bile duct at 9 mm. Right kidney is negative for hydronephrosis. Liver and pancreas are uniform. IMPRESSION: 1. Gallstones. 2. Prominent common bile duct at 9 mm. Study: MRCP HISTORY: Upper abdominal pain. COMPARISON: None. FINDINGS: Gallstones are present within the gallbladder lumen. No significant pericholecystic edematous change. Biliary ductal system shows no significant filling defect. Common bile duct measures 6 mm at maximum. No significant dilatation of the pancreatic duct. Kidneys are considered negative for hydronephrosis. Nonobstructive bowel pattern. IMPRESSION: 1. Gallstones. 2. Normal caliber bile ducts. 3. Otherwise negative study. (1) Cholelithiasis Biliary obstruction: without biliary obstruction Cholecystitis acuity: acute Cholecystitis presence: with cholecystitis Cholelithiasis location: gallbladder Qualified Code(s): K80.00 - Calculus of gallbladder with acute cholecystitis without obstruction
--- NOTE | 2019-03-26 11:10 | Medical Student Progress Note ---
Date of Service March 26, 2019 Assessment & Plan (1) RUQ abdominal pain: Patient is a 33 y/o F who w/ no significant PMHx and PSHx of tubal ligation who presented to ED yesterday w/ 2 month Hx of RUQ that worsened yesterday 03/25 after dinner. Concern for cholecystitis. RUQ Pain Afebrile, no WBC elevation Ultrasound gallbladder: Cholelithiasis, borderline gallbladder wall thickness, dilated common bile duct 10 mm positive Ruvalcaba sign MRCP: showed gallstones, normal caliber bile ducts, otherwise negative study LFT and lipase normal Toradol and morphine as needed for pain Zofran as needed for nausea/vomiting N.p.o. on IV fluids Surgery consulted and recommend laparoscopic cholecystectomy Urinary frequency On admission UA greater than 30 epi, 2+ leuk esterase and 10-30 WBC Urine culture pending Being treated empirically w/ ceftriaxone 1,000 mg IV due to urinary frequency and U/A FEN/GI: N.p.o. on IV fluids LR 125 cc/h DVT prophylaxis: SCDs only, encourage ambulation Code: Full Disposition: MedSurg Supervising Attestation Medical student Supervision Note: I independently interviewed and examined the patient and verified the christensen history and physical, reviewed labs and image studies, discussed the case with the resident Yanci Mari and agree with the findings and care plan. Seems to be in distress from RUQ pain. no other concerns Abdomen - soft. tenderness RUQ +, BS + Control pain. Discuss with surgery about timing of lap renan Subjective Patient reports poor night of sleep with 2 hours of sleep and significant RUQ abdominal pain that radiates to back that is tolerable with toradol and morphine. Describes pain as stabbing and colicky. Patient notes pain is same this morning as it was on admission. Pain worsens with movement. Patient also reports a significant headache that she states is due to fatigue and caffeine withdrawal. Urinating normally with no burning/itching. No bowel movements. Reports nausea secondary to pain. No fever. No chills. No vomiting. No CP. No SOB. Review of Systems Review of Systems: All systems reviewed & are unremarkable except as noted in HPI & below As per HPI Physical Exam Constitutional: well developed and well nourished Respiratory: normal respiratory effort, lungs clear to auscultation Cardiovascular: RRR, no murmur, no edema Heart Sounds: normal S1 and normal S2 Gastrointestinal (Abdomen): Inspection/Auscultation: normal bowel sounds Percussion/Palpation: + abdomen tender; no guarding Psychiatric: A+Ox3, euthymic affect Results & Data Vital Signs (Past 12 Hours) Vital Signs Temp Pulse Pulse Pulse Resp BP BP 03/26/19 07:30 36.9 C 65 13 118/80 03/26/19 04:03 37 C 68 16 122/77 03/26/19 03:10 80 19 112/85 03/26/19 01:57 69 16 121/51 L 03/26/19 01:46 71 14 121/51 L 03/26/19 00:41 71 16 135/91 03/26/19 00:18 81 16 144/99 H 03/25/19 23:25 36.7 C 90 20 150/94 H Pulse Ox 03/26/19 07:30 97 03/26/19 04:03 99 03/26/19 03:10 99 03/26/19 01:57 95 03/26/19 01:46 96 03/26/19 00:41 100 03/26/19 00:18 100 03/25/19 23:25 98
[2019-03-26] MEDS ORDERED: MIDAZOLAM HCL 1 MG/ML 2ML VIAL ONE (14:05)
[2019-03-26] MEDS ORDERED: fentaNYL citrate 100 MCG/2 ML VIAL ONE (14:05)
[2019-03-26] MEDS ORDERED: HYDROmorphone INJ 1 MG/ML SYRINGE IV PRN (15:30)
[2019-03-26] MEDS ORDERED: fentaNYL citrate 100 MCG/2 ML VIAL IV PRN (15:30)
[2019-03-26] MEDS ORDERED: ePHEDrine sulfate 50 MG/ML AMP IV PRN (15:30)
[2019-03-26] MEDS ORDERED: ATROPINE SULFATE 0.1 MG/ML 10ML SYR IV PRN (15:30)
--- NOTE | 2019-03-26 15:37 | Anesthesiology Consultation ---
Date of Service March 26, 2019 Assessment & Plan (1) Encounter for pre-operative examination: Chart Review Chart Review: Acceptable Risk for Surgery and Patient NOT seen in Pre Admission Testing Consults Requested none History Surgery Operation Date: 03/26/19 10:30 Proposed Procedures p Laparoscopic Cholecystectomy - Yogi Mendez MD Height/Weight Height: 5 ft 4 in Weight: 72.2 kg Allergies Allergy/AdvReac Type Severity Reaction Status Date / Time No Known Allergies Allergy Unknown Verified 03/26/19 00:21 Medications Home Medications Medication Instructions Recorded Confirmed Last Taken No Known Home Medications 03/26/19 03/26/19 Unknown Active Medications Generic Name Dose Route Start Last Admin Trade Name Freq PRN Reason Stop Dose Admin Lactated Ringer's 1,000 mls @ 125 mls/hr 03/26/19 04:04 03/26/19 13:04 Lr IV 04/25/19 04:03 125 mls/hr .Q8H MING Administration Ceftriaxone Sodium 1,000 mg/ 50 mls @ 100 mls/hr 03/26/19 05:00 03/26/19 04:58 Dextrose IV 03/31/19 04:59 Infused Q24H MING Infusion Protocol Ketorolac Tromethamine 15 mg 03/26/19 07:22 03/26/19 08:04 Toradol IV 03/31/19 04:03 15 mg Q6H PRN Administration Pain Morphine Sulfate 2 mg 03/26/19 04:04 03/26/19 12:35 Morphine Sulfate IV 04/09/19 04:03 2 mg Q3H PRN Administration Pain NPO Date Last Intake of Fluids: 03/25/19 Time Last Intake of Fluids: 23:00 Date Last Intake of Solids: 03/25/19 Time Last Intake of Solids: 23:00 Past Medical History Medical History Anxiety (Chronic) Bronchitis (Resolved) Conjunctivitis (Resolved) Costochondritis (Acute) Obstructive uropathy (Acute) Renal colic (Acute) Exercise / Class Metabolic Activity II 4-5 Yardwork/Stairs/Walk up hill Past Surgical History Surgical History H/O tubal ligation Past Anesthesia History No Hx of Anesthesia Complications and No Family Hx of Anesthesia Complications History of PONV No Hx of PONV and No Hx of Motion Sickness Social History Smoking Status: Never smoker Do You Dip or Chew Tobacco: No Hx Alcohol Use: Yes Alcohol type: wine alcohol intake frequency: holidays/special occasions only Hx Substance Use: No Physical Exam Vital Signs Last Vital Signs Temp 36.7 C 03/26/19 14:26 Pulse 83 03/26/19 14:26 Resp 18 03/26/19 14:26 BP 127/89 03/26/19 14:26 Pulse Ox 98 03/26/19 14:26 Testing Laboratory Results 03/25/19 23:48 03/25/19 23:48 HCG, Quant < 1 mIU/ml 03/26/19 00:07 Urine Color Yellow 03/25/19 23:50 Urine Appearance Slightly Cloudy (Clear) 03/25/19 23:50 Urine pH 6.5 (4.5-7.5) 03/25/19 23:50 Ur Specific [place] 1.020 (1.000-1.030) 03/25/19 23:50 Urine Protein Negative (Negative) 03/25/19 23:50 Urine Glucose (UA) Negative (Negative) 03/25/19 23:50 Urine Ketones Negative (Negative) 03/25/19 23:50 Urine Nitrite Negative (Negative) 03/25/19 23:50 Ur Leukocyte Esterase 2+ (Negative) H 03/25/19 23:50 Urine RBC 0-4 /hpf (0-4) 03/25/19 23:50 Urine WBC 10-30 /hpf (0-5) H 03/25/19 23:50 Ur Epithelial Cells >30 /lpf (0-5) H 03/25/19 23:50 03/26/19 00:07 HCG, Quant < 1
[2019-03-26] MEDS ORDERED: CEFAZOLIN 2000MG 2,000 MG/15 ML SYR IV ONE (16:10)
--- NOTE | 2019-03-26 16:10 | History & Physical Bridge Note ---
Date of Service March 26, 2019 History & Physical Bridge Note I have examined the patient, reviewed the History & Physical and in the interval since the performance of the History & Physical I have noted the following changes of clinical significance: no changes noted Supervising Physician Co-Signing Physician Notes Attending addendum: I have physically seen this patient, have supervised the medical residents activities, and agree with the H&P unless as otherwise noted. Assessment and Plan: Right upper quadrant abdominal pain/CBD dilatation- Abnormal gallbladder ultrasound with gallbladder wall thickening and dilated CBD of 10 mm. NPO Famotidine 20 mg IV every 12 hours. IV fluids. NSS at 125 mL's per hour Zofran 4 mg IV every 6 hours PRN. Toradol IV as needed moderate pain Morphine sulfate IV as needed severe pain. Order an MRCP, and pending results, consult to gastroenterology and/or general surgery. Urinary frequency- Urine culture and sensitivity pending. Empiric treatment with ceftriaxone IV to cover UTI and urinary issues. Remainder of orders and notations as noted
[2019-03-26] MEDS ORDERED: CEFAZOLIN 2,000 MG/15 ML IV PUSH IV ONE (16:14)
[2019-03-26] MEDS ORDERED: BACITRACIN OINT 15 GM TUBE ONE (16:23)
[2019-03-26] MEDS ORDERED: LIDOCAINE HCL 1% 20 ML VIAL ONE (16:23)
[2019-03-26] MEDS ORDERED: BUPIVACAINE 0.5 % 5 MG/1 ML MPF 30ML VIAL ONE (16:23)
[2019-03-26] MEDS ORDERED: DEXAMETHASONE SOD INJ 4 MG/ML VIAL ONE (17:01)
[2019-03-26] MEDS ORDERED: ONDANSETRON INJ 2 MG/ML 2 ML VIAL ONE (17:01)
[2019-03-26] MEDS ORDERED: KETOROLAC 30 MG/ML VIAL ONE (17:01)
[2019-03-26] MEDS ORDERED: PROPOFOL IV EMULSION 10 MG/ML 20 ML VIAL IV ONE (17:01)
[2019-03-26] MEDS ORDERED: GLYCOPYRROLATE 0.2 MG/ML VIAL ONE (17:01)
[2019-03-26] MEDS ORDERED: LIDOCAINE HCL 2% 2 ML VIAL/AMP(20MG/ML) INFIL ONE (17:01)
[2019-03-26] MEDS ORDERED: LARYING-O-JET KIT (LTA) ONE (17:01)
[2019-03-26] MEDS ORDERED: ROCURONIUM BROMIDE 10 MG/ML 5 ML VIAL ONE (17:01)
[2019-03-26] MEDS ORDERED: NEOSTIGMINE METHYLSULFATE 5 MG/5 ML SYR ONE (17:01)
--- NOTE | 2019-03-26 17:56 | Post Operative Brief Note ---
Immediate Post Op Note v1 Date of Surgery March 26, 2019 Pre & Post Diagnosis Operation Date: 03/26/19 10:30 Pre-Op Diagnosis: Acute Cholecystitis, cholelithiasis Post-Op Diagnosis: Acute Cholecystitis, cholelithiasis I identified the patient and participated in the time-out.: Yes Procedure Operation Date: 03/26/19 10:30 Actual Procedures p Laparoscopic Cholecystectomy - Yogi Mendez MD Surgeon Yogi Mendez MD Rn Ortho surgical clinical reviewer Estimated Blood Loss 10 Findings Consistent with Post-Op Diagnosis Fluids 700ml Specimens gallbladder Anesthesia Type General Complications none Disposition Accompanied Patient To Recovery: Yes Disposition: Recovery Room Overlapping Procedure I was immediately available: during the entire case.
--- NOTE | 2019-03-26 18:50 | Anesthesiology Progress Note ---
Date of Service March 26, 2019 Anesthesia Post Procedure Vital Signs Vital Signs: Temp Pulse Pulse Pulse Pulse Resp BP 03/26/19 18:35 36.4 C L 69 14 03/26/19 18:25 69 17 03/26/19 18:15 67 16 03/26/19 18:05 36.0 C L 70 13 03/26/19 14:26 36.7 C 83 18 03/26/19 07:30 36.9 C 65 13 03/26/19 04:03 37 C 68 16 03/26/19 03:10 80 19 03/26/19 01:57 69 16 03/26/19 01:46 71 14 03/26/19 00:41 71 16 03/26/19 00:18 81 16 03/25/19 23:25 36.7 C 90 20 150/94 H BP Pulse Ox 03/26/19 18:35 118/85 98 03/26/19 18:25 121/84 100 03/26/19 18:15 120/82 100 03/26/19 18:05 124/89 100 03/26/19 14:26 127/89 98 03/26/19 07:30 118/80 97 03/26/19 04:03 122/77 99 03/26/19 03:10 112/85 99 03/26/19 01:57 121/51 L 95 03/26/19 01:46 121/51 L 96 03/26/19 00:41 135/91 100 03/26/19 00:18 144/99 H 100 03/25/19 23:25 98 Pain Intensity Right Flank: Pain Intensity: 3 Left Lower Abdomen: Pain Intensity: 6 Head: Pain Intensity: 10 Abdomen: Pain Intensity: 0 Transfer of Care Handoff Completed per policy Notes Mental Status: alert / awake / arousable and participated in evaluation Patient Amnestic to Procedure: Yes Nausea / Vomiting: adequately controlled Pain: adequately controlled Airway Patency, RR, SpO2: stable & adequate BP & HR: stable & adequate Hydration State: stable & adequate Anesthetic Complications: no major complications apparent and Pt Satisfied with anesthetic care
[2019-03-26] MEDS ORDERED: PROCHLORPERAZINE 5 MG in SYRINGE 4 ML IV PRN (21:46)
[2019-03-27] MEDS: MoRPHine SULFATE 2 MG/ML CARP IV PRN (01:12)
[2019-03-27] MEDS: cefTRIAXone SODIUM 1,000 MG in DEXTROSE 5% 50 ML IV SCH (04:52)
[2019-03-27] MEDS: KETOROLAC TROMETHAMINE 15 MG/ML VIAL IV PRN (04:52)
[2019-03-27 05:42] LABS: Hematocrit (blood only) 38.9 % (37-47); Hemoglobin 13.5 g/dL (12.0-16.0); Immature Granulocytes # (auto) 0.01 K/uL (0.00-0.02); Immature Granulocytes % (auto) 0.1 %; Lymphocytes # (auto) 0.89 K/uL (1.2-3.4); Mean Corpuscular Hemoglobin 30.9 pg (25-34); Mean Corpuscular Hgb Conc 34.7 g/dL (32-36); Mean Platelet Volume 9.9 fL (7.4-10.4); Monocytes # (auto) 0.31 K/uL (0.11-0.59); Monocytes % (auto) 3.5 %; Neutrophils # (auto) 7.73 K/uL (1.4-6.5); Neutrophils % (auto) 86.4 %; Platelet Count 283 K/uL (130-400); RDW Coefficient of Variation 12.2 % (11.5-14.5); RDW Standard Deviation 39.2 fL (36.4-46.3); Red Blood Count 4.37 M/uL (4.2-5.4); White Blood Count 8.94 K/uL (4.8-10.8)
[2019-03-27 06:23] LABS: Albumin Level 3.8 gm/dl (3.4-5.0); BUN Creatinine Ratio 11.4 (10-20); Bilirubin,Total 0.5 mg/dl (0.2-1); Creatinine Clr Calc Pharmacy 110.3 ml/min; Globulin 3.8 gm/dl (2.5-4.0); Potassium 3.9 mmol/L (3.5-5.1); Total Protein 7.6 gm/dl (6.4-8.2)
--- NOTE | 2019-03-27 06:33 | Operative Report ---
DATE OF OPERATION: 03/26/2019 PREOPERATIVE DIAGNOSES: Acute cholecystitis, cholelithiasis. POSTOPERATIVE DIAGNOSES: Acute cholecystitis, cholelithiasis. PROCEDURE: Laparoscopic cholecystectomy. SURGEON: Yogi Mendez MD ANESTHESIA: General. ESTIMATED BLOOD LOSS: About 10 mL. FINDINGS: Acute cholecystitis with cholelithiasis. COMPLICATIONS: None. INDICATIONS FOR THE PROCEDURE: This is a 33-year-old female who was admitted to hospital for acute cholecystitis with cholelithiasis. The patient will be required to do laparoscopic cholecystectomy, possible open, possible cholangiogram. I did talk to the patient about the benefit and risk, alternate procedure. I indicated the risks may include but not limited such as bleeding, infection, injury to common bile duct, bile leak, may need ERCP. The patient understands. She signed informed consent and I answered all questions. DETAILS OF PROCEDURE: We brought the patient to the OR, put the patient in the supine position. The patient received SCD on bilateral legs to prevent DVT. Also, the patient received 2 grams Ancef IV for prophylactic antibiotic. The patient received general anesthesia without difficulty. The abdomen was prepped and draped in routine sterile fashion. After timeout, I injected local anesthesia by using 1% lidocaine mixed with 0.5% Marcaine just above umbilicus. Then, I made a small incision just above the umbilicus, opened fascia and opened peritoneum under direct vision, put a Rajani trocar in, connected to CO2 to create pneumoperitoneum. Flow rate at 6 liters per minute. Pressure not more than 14 mmHg. Then, we put the camera in, looked around the abdomen, shows normal finding on the liver. The gallbladder shows acute cholecystitis confirmed diagnosis of acute cholecystitis. Then, we put another 5 mm trocar on the right upper quadrant. Once all trocars in, we put a grasper to hold the base of gallbladder, put a direction to the diaphragm, another grasper to hold the pouch of gallbladder, put the latter to explore the triangle of Calot. The cystic duct was identified and mobilized. I put two 5 mm metal clip on the proximal cystic duct, one on the distal cystic duct. Then, I used a scissor for transection of cystic duct. Rechecked and no bile leak. The cystic was identified and mobilized. I put two 5 mm metal clips on the proximal cystic artery, 1 on the distal cystic artery. Then, I used a scissor for transection of cystic artery. Rechecked, no active bleeding. Then, we used the Bovie to take down gallbladder from the liver bed. Rechecked, no active bleeding, no bile leak from the liver bed. Then, we removed gallbladder through the catch bag. Then, we reinserted the Rajani trocar in, connected to CO2 to create pneumoperitoneum, again looked around the abdomen, no bile leak and no active bleeding from the liver bed. Then, we removed all trocar under direct vision. No active bleeding from the trocar sites. Pneumoperitoneum was released. Then, we closed the umbilical incision, fascial layer by using #1 Vicryl [id number] x2, closed subcutaneous layer by using 2-0 Vicryl interrupted layer, closed skin by using 4-0 Vicryl continuous running, closed another three 5 mm trocar site skin only by using 4-0 Vicryl. Then, we put the dressing on. The patient tolerated the procedure well. All instrument, needle and sponge count were correct x2 at the end of the case. The patient transferred to the recovery room in stable condition. After procedure, I did talk to the patient and family member about the OR finding and procedure we did, they understand. I attest to the content of the Intraoperative Record and any orders documented therein. Any exception s are noted below.
[2019-03-27] MEDS ORDERED: OXYCODONE/ACETAMINOPHEN 5mg/325mg TAB PO PRN (08:03)
--- NOTE | 2019-03-27 09:56 | Surgery Progress Note ---
Date of Service March 27, 2019 Assessment & Plan (1) Cholelithiasis: POD # 1 s/p laparoscopic cholecystectomy -vitals stable, afebrile - post op pain minimal - no n/v - preop pain resolved Plan: advance diet as tolerated continue ambulating in room continue pain management as needed okay from surgical standpoint for discharge discharge instructions reviewed Rx for Percocet sent to pharmacy f/u surgical office in 2 weeks work note given Dr. Mendez has seen and examined pt, agrees with above Subjective feeling good no abdominal pain, preop RUQ pain resolved tolerated clear liquids, no n/v, no bloating urinating without difficulty ambulating in room no cp/sob Physical Exam Constitutional: WD/WN, vitals as above no acute distress Gastrointestinal (Abdomen): Inspection/Auscultation: abdomen normal to inspection; abdomen not distended Percussion/Palpation: abdomen soft; abdomen nontender, no guarding and abdomen not rigid Skin: no rashes, warm and dry + incision (dressings present, mild spotting but dry) Psychiatric: A+Ox3, euthymic affect Results & Data Vital Signs (Past 12 Hours) Vital Signs Temp Pulse Resp BP Pulse Ox 03/27/19 07:58 36.9 C 86 18 116/79 97 03/27/19 03:45 36.9 C 89 16 96/58 L 97 03/27/19 00:25 36.7 C 92 H 16 100/67 96 Laboratory Results 03/27/19 03/27/19 Range/Units 04:49 04:49 WBC 8.94 (4.8-10.8) K/uL RBC 4.37 (4.2-5.4) M/uL Hgb 13.5 (12.0-16.0) g/dL Hct 38.9 (37-47) % MCV 89.0 (80-100) fL MCH 30.9 (25-34) pg MCHC 34.7 (32-36) g/dL RDW Std Deviation 39.2 (36.4-46.3) fL RDW Coeff of Amirah 12.2 (11.5-14.5) % Plt Count 283 (130-400) K/uL MPV 9.9 (7.4-10.4) fL Immature Gran % (Auto) 0.1 % Neut % (Auto) 86.4 % Lymph % (Auto) 10.0 % [place] % (Auto) 3.5 % Eos % (Auto) 0.0 % Baso % (Auto) 0.0 % Immature Gran # (Auto) 0.01 (0.00-0.02) K/uL Neut # (Auto) 7.73 H (1.4-6.5) K/uL Lymph # (Auto) 0.89 L (1.2-3.4) K/uL [place] # (Auto) 0.31 (0.11-0.59) K/uL Eos # (Auto) 0.00 (0-0.5) K/uL Baso # (Auto) 0.00 (0-0.2) K/uL Sodium 136 (136-145) mmol/L Potassium 3.9 (3.5-5.1) mmol/L Chloride 105 (98-107) mmol/L Carbon Dioxide 24 (21-32) mmol/L Anion Gap 7.0 (3-11) BUN 8 D (7-18) mg/dl Creatinine 0.70 (0.6-1.2) mg/dl Est Cr Clr Drug Dosing 110.3 ml/min Est GFR ( Amer) 131.0 Est GFR (Non-Af Amer) 113.0 BUN/Creatinine Ratio 11.4 (10-20) Glucose 109 H (70-99) mg/dl Calcium 9.0 (8.5-10.1) mg/dl Total Bilirubin 0.5 (0.2-1) mg/dl AST 13 L (15-37) U/L ALT 18 (12-78) U/L Alkaline Phosphatase 71 (45-117) U/L Total Protein 7.6 (6.4-8.2) gm/dl Albumin 3.8 (3.4-5.0) gm/dl Globulin 3.8 (2.5-4.0) gm/dl Albumin/Globulin Ratio 1.0 (0.9-2) (1) Cholelithiasis Biliary obstruction: without biliary obstruction Cholecystitis acuity: acute Cholecystitis presence: with cholecystitis Cholelithiasis location: gallbladder Qualified Code(s): K80.00 - Calculus of gallbladder with acute cholecystitis without obstruction
--- NOTE | 2019-03-27 10:04 | Anesthesiology Progress Note ---
Date of Service March 27, 2019 Anesthesia Post Procedure Vital Signs Vital Signs: Temp Pulse Pulse Resp BP Pulse Ox 03/27/19 07:58 36.9 C 86 18 116/79 97 03/27/19 03:45 36.9 C 89 16 96/58 L 97 03/27/19 00:25 36.7 C 92 H 16 100/67 96 03/26/19 21:50 36.5 C 78 16 115/75 100 03/26/19 20:50 36.9 C 81 16 95/62 L 96 03/26/19 19:50 36.4 C L 78 16 119/79 96 03/26/19 19:19 36.6 C 70 16 112/79 95 03/26/19 18:50 36.6 C 74 16 122/83 99 03/26/19 18:35 36.4 C L 69 14 118/85 98 03/26/19 18:25 69 17 121/84 100 03/26/19 18:15 67 16 120/82 100 03/26/19 18:05 36.0 C L 70 13 124/89 100 03/26/19 14:26 36.7 C 83 18 127/89 98 Pain Intensity Right Flank: Pain Intensity: 3 Left Lower Abdomen: Pain Intensity: 6 Head: Pain Intensity: 10 Abdomen: Pain Intensity: 3 Notes Mental Status: alert / awake / arousable and participated in evaluation Nausea / Vomiting: adequately controlled Pain: adequately controlled Airway Patency, RR, SpO2: stable & adequate BP & HR: stable & adequate Hydration State: stable & adequate Anesthetic Complications: no major complications apparent
--- NOTE | 2019-03-27 13:01 | Discharge Summary ---
Date of Service March 27, 2019 Admission HPI Per Admitting Provider 33-year-old female otherwise healthy presents with right upper quadrant abdominal pain that worsened tonight after dinner. Reports discomfort since January and her right upper quadrant. Tonight had some [place] food, ice cream, and some pizza after which her pain got worse. Associate with nausea and vomiting. Also having increased urinary frequency but denies any dysuria or hematuria. Denies any fever, chills, headache, lightheadedness, chest pain, shortness of breath, diarrhea, constipation, hematochezia, melena. Past medical history: None Allergies: None Medications: None Social history: Drinks alcohol socially, smoked only for 6 months socially, denies recreational drug use Family history: Patient adopted unknown Admission Exam Per Admitting Provider General: In mild distress HEENT: dry oral mucosa Neuro: A&O x 4 Pulm: CTAB equal breath sounds bilaterally CV: RRR, no m/r/g, cap refill 3 secs Abdomen:+BS, RUQ and epigastric TTP, positive Ruvalcaba's sign, non-distended, no rebound tendernes LE: no LE edema, no calf TTP Principal Diagnosis cholecystitis Discharge Exam Constitutional WD/WN, vitals as above Respiratory normal respiratory effort, lungs clear to auscultation Cardiovascular RRR, no murmur, no edema Gastrointestinal (Abdomen) normal bowel sounds, soft, nontender, no hepatosplenomegaly pt with 4 bandages at laparoscopy sites, no drainage, no erythema. Skin no rashes, warm and dry Psychiatric A+Ox3, euthymic affect Discharge Data Allergies Allergy/AdvReac Type Severity Reaction Status Date / Time No Known Allergies Allergy Unknown Verified 03/26/19 00:21 Consultations 03/26/19 04:04 Consult General Surgery Routine 03/26/19 04:44 ED Decision to Admit Stat Procedures Performed Operation Date: 03/26/19 10:30 Actual Procedures p Laparoscopic Cholecystectomy - Yogi Mendez MD Ordered Studies 03/26/19 00:58 US gallbladder Urgent 03/26/19 02:56 MR MRCP Stat Hospital Course (1) Cholecystitis: Patient is a 33 y/o F who w/ no significant PMHx and PSHx of tubal ligation who presented to ED yesterday w/ 2 month Hx of RUQ that worsened yesterday 03/25 after dinner. Concern for cholecystitis confirmed on lap renan. Acute cholecystitis - came in originally with RUQ pain, nausea, vomiting. - Surgery performed lap renan 03/26/19 which confirmed cholecystitis, and pt's diet was advanced post-op without nausea or vomiting, pain has resolved since surgery. - Went home with instructions per surgery for follow up and to restrict heavy li fting to less than 20 pounds for at least 4 weeks. Urinary frequency - On admission UA greater than 30 epi, 2+ leuk esterase and 10-30 WBC. - Urine culture grew Gardnerella-like bacteria. Received Rocephin while in hospital. - No longer with urinary frequency on discharge. (2) Urinary frequency: Total Time Total Time Spent Total Time Spent (In Minutes): see attending attestation. Discharge Plan Discharge Items Patient Disposition: Home - Self-Care Reason For Visit: RUQ ABDOMINAL PAIN Discharge Diagnosis: acute cholecystitis with gallstones (inflammation of gallbladder) Activity: Per Instructions section Lifting Comment: No more than 20 pounds per surgery Non-emergency contact: Surgeon Call non-emergency contact if: your symptoms worsen, your pain is not controlled, your pain is worsening, your pain is concerning for you, you have a fever, your temperature is above 101, your wound has increased redness, your wound has increased drainage and your wound pain has increased Follow-up/Referrals: Ke Galicia III, MD [Primary Care Provider] - Diet: Regular Addtl Attending Provider Instructions: You were admitted for abdominal pain and found to have inflammation of your gallbladder. The surgeons removed your gallbladder and since you are feeling better we will discharge you with instructions from surgery. Addtl It Systems Analyst Consultant Provider Instructions: Surgical discharge instructions: No heavy lifting over 20 pounds for 3-4 weeks No strenuous activity until cleared by surgeon No submerging incisions underwater for 2 weeks (no bathing,swimming, or hot tubs) No driving while taking narcotic pain medication or until you are pain free You may shower in 3 days. Sponge bath and wash hair in meantime. Keep dressings on for 3 days and then remove. Leave steri strips on for 7 days and then remove. Walking is encouraged to prevent blood clots from forming in your legs You will be given prescription for narcotic pain medication as needed for moderate to severe pain. Take as directed. This medication may cause drowsiness and constipation. May take extra strength Tylenol or Ibuprofen as needed for mild pain - 650 mg of Tylenol every 6 hours as needed - 600 mg of Ibuprofen every 6 hours as needed (take with food) Recommend stool softener if taking narcotic pain medication (i.e. Colace) Follow-up in surgical office in 2 weeks, please call office at [phone] to make an appointment. Pending Studies at Discharge: Yes (Gallbladder pathology, will be reviewed at follow up visit) Stand-Alone Forms: [facility], Opioid Pain Management, Work/School Release (Inpt), Smoking Cessation Medications and DC Order Prescriptions: New oxycodone-acetaminophen [Percocet] 5-325 mg tablet 1 tab PO Q4H PRN (Reason: pain) Qty: 5 RF: 0 Discharge Orders: Discharge Order (Routine); Ordered 03/27/19 Ordered By: Rufina Keys/Other Patient Handouts: Surgery Prevent DVT After Admission Data Admit Date/Time: 03/26/19 03:01 Attending Provider: Irma Marks Admit Provider: Cody Rosenberg Primary Care Provider: Ke Galicia III Other Providers: Yogi Mendez ; Cody Rosenberg Other Interventions: Discharge Summary Assessment (RN) Last Done: 03/27/19 11:18 DC Date/Time DO NOT enter until pt leaves facility: 03/27/19 13:43 Supervising Physician Co-Signing Physician Notes Resident Physician Supervision Note: I independently interviewed and examined the patient and verified the christensen history and physical, reviewed labs and image studies, discussed the case with the resident Dr. Hutson and agree with the findings and care plan. Resident Activity Tracking Resident Involvement: Resident Care Provided Care Provided: Adult Hospital Medicine
== END 2019-03-27 13:43 | disposition home or self-care (01) ==
LOC: ED 23:21 → 3W 23:21 → SUATTDRO 03-26 03:01 → 3W 03-26 03:40